=== PATIENT | female | born 1970 | race African-American/Black ===

== ENCOUNTER 2018-06-09 01:23 | Inpatient (IN) | payer MEDICAID, OTHER ==
[~2018-06-09] VITALS: Ht 157.5 cm; Wt 68.0 kg
[~2018-06-09 01:23] MED LIST: DIPH-4; LEVO75CA2; WARF7.5T22
[2018-06-09] MEDS ORDERED: MORPHINE SULFATE 4 MG/ML CPJ (NOT FOR IM USE) IV STA (03:04)
[2018-06-09] MEDS ORDERED: ONDANSETRON HCL 4MG/2ML INJ IV STA (03:04)
[2018-06-09] MEDS ORDERED: SODIUM CHLORIDE 0.9% 1000ML BAG (SEPSIS BOLUS) IV ONE (03:15)
[2018-06-09 03:30] LABS: BASOPHILS % 0.3 % (0.0-2.0); EOSINOPHILS % 1.3 % (0.0-5.0); HEMATOCRIT. 38.1 % (36.0-48.0); HEMOGLOBIN. 12.8 g/dL (12.0-16.0); LYMPHOCYTES % 13.4 % (20.0-50.0); MEAN CORPUSCULAR HEMOGLOBIN 34.1 pg (28.0-32.0); MEAN CORPUSCULAR VOLUME 101.9 fL (81.0-99.0); MONOCYTES % 7.6 % (2.0-8.0); NEUTROPHILS % 77.4 % (40.0-76.0); PLATELET 287 x1000/uL (130-400); RED BLOOD CELL COUNT 3.74 mill/uL (4.2-5.4)
[2018-06-09 03:38] LABS: D-DIMER 0.36 mg/L FEU (<0.50); PARTIAL THROMBOPLASTIN TIME 33.1 sec (23.4-31.0); PROTHROMBIN TIME 9.9 sec (9.1-11.1)
[2018-06-09 03:45] LABS: CHLORIDE 103 mEq/L (98-107)
[2018-06-09 03:48] LABS: HCG SCREEN NEGATIVE
[2018-06-09] MEDS ORDERED: LEVOFLOXACIN 750MG PREMIX 150 ML IV ONE (04:00)
[2018-06-09 04:32] LABS: CLARITY URINE CLEAR (CLEAR); COLOR URINE YELLOW (YELLOW); KETONES URINE NEGATIVE (NEGATIVE); LEUKOCYTE ESTERASE URINE NEGATIVE (NEGATIVE); NITRITE URINE NEGATIVE (NEGATIVE); OCCULT BLOOD URINE NEGATIVE (NEGATIVE); PROTEIN URINE NEGATIVE (NEGATIVE); SPECIFIC GRAVITY URINE 1.002 (1.005-1.030); UROBILINOGEN URINE 0.2 E.U./dL (0.2-1.0)
[2018-06-09] MEDS ORDERED: IOHEXOL-350 100 ML BOTTLE ONE (07:01)
[2018-06-09 08:50] VITALS: BP 117/76
[2018-06-09 09:00] VITALS: BP 117/76
[2018-06-09] MEDS ORDERED: HYDROCODONE/ACETAMINOPHEN 5/325MG TABLET PO PRN (09:45)
[2018-06-09] MEDS ORDERED: ENOXAPARIN 40MG/0.4ML SYR SUBCUT SCH (09:45)
[2018-06-09 12:00] VITALS: BP 101/50
[2018-06-09] MEDS ORDERED: ASPIRIN 81MG TABLET PO SCH (12:00)
[2018-06-09] MEDS ORDERED: IPRATROPIUM/ALBUTEROL 0.5-3(2.5)MG/3ML NEB HHN PRN (12:00)
[2018-06-09] MEDS ORDERED: THROAT LOZENGES-BENZOCAINE/MENTH/CETYLPYRD CL LOZENGES MM PRN (14:45)
[2018-06-09] MEDS ORDERED: NAPROXEN 250MG TABLET PO SCH (15:00)
[2018-06-09 15:50] VITALS: BP 20/106
[2018-06-09 16:00] VITALS: BP 141/79
[2018-06-09] MEDS ORDERED: GUAIFENESIN 600MG ER TABLET PO SCH (16:30)
[2018-06-10] MEDS ORDERED: LEVOFLOXACIN 500MG PREMIX 100 ML IV SCH (05:00)
== END 2018-06-09 17:48 | disposition home or self-care (01) | DRG 152 ==
LOC: ER 01:23 → 6WST 04:41 → ENRESERV 06:58
PROVIDERS: ADMIT Internal Medicine; ATTEND Internal Medicine
DX: J06.9 Acute upper respiratory infection, unspecified (principal); J18.9 Pneumonia, unspecified organism; D68.59 Other primary thrombophilia; J98.11 Atelectasis; E03.9 Hypothyroidism, unspecified; I10 Essential (primary) hypertension; K44.9 Diaphragmatic hernia without obstruction or gangrene; Z86.711 Personal history of pulmonary embolism; Z86.718 Personal history of other venous thrombosis and embolism; Z87.01 Personal history of pneumonia (recurrent); Z87.891 Personal history of nicotine dependence; Z91.14 Patient's other noncompliance with medication regimen; Z79.899 Other long term (current) drug therapy; Z79.01 Long term (current) use of anticoagulants
CPT/HCPCS: 36415; 71045; 71275; 83036; 83605; 83880; 84145; 84484; 84703; 85379; 87804; 93005; 93306; 93970; 99285; J1650; J1956; J2270; J2405; J7030; Q9967